=== PATIENT | female | born 1995 | race American Indian/Alaskan Native ===

== ENCOUNTER 2020-01-04 07:36 | Emergency (ER) | payer BC, OTHER ==
[2020-01-04 08:50] LABS: Bacteria,Urine 1+ /HPF (Negative); Bilirubin,Urine NEG (Negative); Blood,Urine LG (Negative); Color,Urine Straw (Yellow); Protein,Urine <15 mg/dL mg/dL (Negative); Urobilinogen,Urine < 2.0 mg/dL (<2.0)
--- NOTE | 2020-01-04 09:16 | Emergency Department Report ---
ED HPI - General Chief complaint: Vaginal Bleeding Stated complaint: poss mischariage Time Seen by Provider: 01/04/20 08:08 Source: patient Mode of arrival: Ambulatory Limitations: No Limitations - History of Present Illness Initial comments: Patient is a 24-year-old female presents emergency room with complaints of vaginal bleeding that began this morning. She states that it was bright red blood and she saw a small amount of clots. She states that the bleeding is since improved. She states that she has some mild lower abdominal pressure but denies any pain or cramping. She denies any vomiting, diarrhea, fever, dysuria, abnormal vaginal discharge. She states that she is currently 19 weeks . She states her OB group is [facility]. Patient states her last menstrual cycle was August 18. She states this is her first . No past medical history. No allergies to medications. - Related Data Previous Rx's Medication Instructions Recorded Last Taken Type Acetaminophen/Codeine [Tylenol #3] 1 tab PO Q6H PRN #15 tab 04/10/15 Unknown Rx Ibuprofen [Motrin 800 MG tab] 800 mg PO Q8HR PRN #30 tablet 04/10/15 Unknown Rx Allergies Allergy/AdvReac Type Severity Reaction Status Date / Time No Known Allergies Allergy Unverified 04/10/15 07:31 ED Review of Systems ROS: Stated complaint: poss mischariage Other details as noted in HPI Comment: All other systems reviewed and negative ED Past Medical Hx - Past Medical History Previous Medical History?: No - Surgical History Past Surgical History?: No - Social History Smoking Status: Never Smoker Substance Use Type: None - Medications Home Medications: Home Medications Medication Instructions Recorded Confirmed Last Taken Type Acetaminophen/Codeine [Tylenol #3] 1 tab PO Q6H PRN #15 tab 04/10/15 Unknown Rx Ibuprofen [Motrin 800 MG tab] 800 mg PO Q8HR PRN #30 tablet 04/10/15 Unknown Rx ED Physical Exam - General Limitations: No Limitations General appearance: alert, in no apparent distress - Head Head exam: Present: atraumatic, normocephalic - Eye Eye exam: Present: normal appearance - ENT ENT exam: Present: mucous membranes moist - Respiratory Respiratory exam: Present: normal lung sounds bilaterally. Absent: respiratory distress, wheezes, rales, rhonchi, stridor, chest wall tenderness, accessory muscle use, decreased breath sounds, prolonged expiratory - Cardiovascular Cardiovascular Exam: Present: regular rate, normal rhythm, normal heart sounds. Absent: systolic murmur, diastolic murmur, rubs, gallop - GI/Abdominal GI/Abdominal exam: Present: soft, normal bowel sounds. Absent: distended, tenderness, guarding, rebound, rigid - Neurological Exam Neurological exam: Present: alert, oriented X3 - Psychiatric Psychiatric exam: Present: normal affect, normal mood - Skin Skin exam: Present: warm, dry, intact ED Course Vital Signs 01/04/20 01/04/20 07:59 08:16 Temperature 98.2 F Pulse Rate 83 Respiratory 16 18 Rate Blood Pressure 129/80 [Right] O2 Sat by Pulse 99 99 Oximetry ED Medical Decision Making - Lab Data Result diagrams: 01/04/20 09:18 01/04/20 09:18 Lab Results 01/04/20 01/04/20 01/04/20 Range/Units 09:18 09:18 09:18 WBC 9.7 (4.5-11.0) K/mm3 RBC 3.68 (3.65-5.03) M/mm3 Hgb 11.7 (10.1-14.3) gm/dl Hct 33.3 (30.3-42.9) % MCV 91 (79-97) fl MCH 32 (28-32) pg MCHC 35 H (30-34) % RDW 13.8 (13.2-15.2) % Plt Count 358 (140-440) K/mm3 Lymph % (Auto) 11.3 L (13.4-35.0) % [place] % (Auto) 6.1 (0.0-7.3) % Eos % (Auto) 0.9 (0.0-4.3) % Baso % (Auto) 0.3 (0.0-1.8) % Lymph # 1.1 L (1.2-5.4) K/mm3 [place] # 0.6 (0.0-0.8) K/mm3 Eos # 0.1 (0.0-0.4) K/mm3 Baso # 0.0 (0.0-0.1) K/mm3 Seg Neutrophils % 81.4 H (40.0-70.0) % Seg Neutrophils # 7.9 H (1.8-7.7) K/mm3 Sodium 139 (137-145) mmol/L Potassium 4.5 (3.6-5.0) mmol/L Chloride 103.7 (98-107) mmol/L Carbon Dioxide 22 (22-30) mmol/L Anion Gap 18 mmol/L BUN 7 (7-17) mg/dL Creatinine 0.6 (0.6-1.2) mg/dL Estimated GFR > 60 ml/min BUN/Creatinine Ratio 12 % Glucose 89 (65-100) mg/dL Calcium 9.5 (8.4-10.2) mg/dL HCG, Quant 9837 H (0-4) mIU/mL Urine Color (Yellow) Urine Turbidity (Clear) Urine pH (5.0-7.0) Ur Specific [place] (1.003-1.030) Urine Protein (Negative) mg/dL Urine Glucose (UA) (Negative) mg/dL Urine Ketones (Negative) mg/dL Urine Blood (Negative) Urine Nitrite (Negative) Urine Bilirubin (Negative) Urine Urobilinogen (<2.0) mg/dL Ur Leukocyte Esterase (Negative) Urine WBC (Auto) (0.0-6.0) /HPF Urine RBC (Auto) (0.0-6.0) /HPF U Epithel Cells (Auto) (0-13.0) /HPF Urine Bacteria (Auto) (Negative) /HPF Blood Type 01/04/20 01/04/20 Range/Units 09:18 Unknown WBC (4.5-11.0) K/mm3 RBC (3.65-5.03) M/mm3 Hgb (10.1-14.3) gm/dl Hct (30.3-42.9) % MCV (79-97) fl MCH (28-32) pg MCHC (30-34) % RDW (13.2-15.2) % Plt Count (140-440) K/mm3 Lymph % (Auto) (13.4-35.0) % [place] % (Auto) (0.0-7.3) % Eos % (Auto) (0.0-4.3) % Baso % (Auto) (0.0-1.8) % Lymph # (1.2-5.4) K/mm3 [place] # (0.0-0.8) K/mm3 Eos # (0.0-0.4) K/mm3 Baso # (0.0-0.1) K/mm3 Seg Neutrophils % (40.0-70.0) % Seg Neutrophils # (1.8-7.7) K/mm3 Sodium (137-145) mmol/L Potassium (3.6-5.0) mmol/L Chloride (98-107) mmol/L Carbon Dioxide (22-30) mmol/L Anion Gap mmol/L BUN (7-17) mg/dL Creatinine (0.6-1.2) mg/dL Estimated GFR ml/min BUN/Creatinine Ratio % Glucose (65-100) mg/dL Calcium (8.4-10.2) mg/dL HCG, Quant (0-4) mIU/mL Urine Color Straw (Yellow) Urine Turbidity Clear (Clear) Urine pH 7.0 (5.0-7.0) Ur Specific [place] 1.006 (1.003-1.030) Urine Protein <15 mg/dl (Negative) mg/dL Urine Glucose (UA) Neg (Negative) mg/dL Urine Ketones Neg (Negative) mg/dL Urine Blood Lg (Negative) Urine Nitrite Neg (Negative) Urine Bilirubin Neg (Negative) Urine Urobilinogen < 2.0 (<2.0) mg/dL Ur Leukocyte Esterase Neg (Negative) Urine WBC (Auto) 1.0 (0.0-6.0) /HPF Urine RBC (Auto) 15.0 (0.0-6.0) /HPF U Epithel Cells (Auto) 2.0 (0-13.0) /HPF Urine Bacteria (Auto) 1+ (Negative) /HPF Blood Type O NEGATIVE - Radiology Data Radiology results: report reviewed OB ULTRASOUND >= 14 WEEKS FETUS INDICATION: , bleeding, cramping COMPARISON: None FINDINGS: A single gestation intrauterine is present with breech presentation. The placenta is posterior, grade 0 and free of the cervical os. heart tones measure 145 bpm. The cervix measures 4.3 cm in length. Subjective amniotic fluid volume appears within normal limits. NICHOLAS was not measured. anatomical survey was not performed. Biparietal diameter is 5.0 cm which equals 21 weeks 1 day. Head circumference is 18.6 cm which equals 20 weeks 6 days. Abdominal circumference is 15.0 cm which equals 20 weeks 1 day. Femur length is 3.3 cm which equals 20 weeks 1 day. Overall estimated sonographic age is 20 weeks 4 days. Estimated weight 345 g +/- 50 1 g. 79th percentile. Cephalic index: 81.7.. IMPRESSION: Viable single intrauterine as described. Signer Name: Eddie tSevenson Jr, MD Signed: 01/04/2020 9:11 AM Workstation Name: [id number] Transcribed By: TTR Dictated By: EDDIE STEVENSON JR, MD Electronically Authenticated By: EDDIE STEVENSON JR, MD Signed Date/Time: 01/04/20910 DD/ 7 TD/TT: - Medical Decision Making Patient is a 24-year-old female presents emergency room with complaints of vaginal bleeding that began this morning. She states that it was bright red blood and she saw a small amount of clots. She states that the bleeding is since improved. She states that she has some mild lower abdominal pressure but denies any pain or cramping. She denies any vomiting, diarrhea, fever, dysuria, abnormal vaginal discharge. She states that she is currently 19 weeks . She states her OB group is [facility]. Patient states her last menstrual cycle was August 18. She states this is her first . No past medical history. No allergies to medications. Vitals are normal. No abdominal tenderness on exam. H&H is normal. BMP is normal. hCG quant is 9837. UA is within normal limits. Patient is Rh-. OB US: Viable single intrauterine as described. Patient given RhoGam while in the emergency department. Discussed all results with patient and answered questions. Advised patient that she needed close OB follow-up within the next 2 days, she verbalized understanding. Advised patient please increase your water intake. Please continue taking her vitamin. May take Tylenol if begin experiencing abdominal cramping. Follow-up with your OB doctor in the next 2 days. It is very important that you have close OB follow-up. Return to emergency room immediately for any new or worsening symptoms. Critical care attestation.: If time is entered above; I have spent that time in minutes in the direct care of this critically ill patient, excluding procedure time. ED Disposition Clinical Impression: Vaginal bleeding, Abdominal pressure, Need for rhogam due to Rh negative mother Qualifiers: Weeks of gestation: 20 weeks Qualified Code(s): Z3A.20 - 20 weeks gestation of Disposition: DC-01 TO HOME OR SELFCARE Is pt being admited?: No Does the pt Need Aspirin: No Condition: Stable Instructions: Threatened Miscarriage (ED), Rho(D) Immune Globulin (Injection) Additional Instructions: please practice pelvic rest. please increase your water intake. Please continue taking her vitamin. May take Tylenol if begin experiencing abdominal cramping. Follow-up with your OB doctor in the next 2 days. It is very important that you have close OB follow-up. Return to emergency room immediately for any new or worsening symptoms. Referrals: PRIMARY CARE, [Primary Care Provider] - 2-3 Days [facility] [Provider Group] - 2-3 Days Time of Disposition: 12:00 Print Language: OCCITAN
[2020-01-04 09:58] LABS: Basophils % (Auto) 0.3 % (0.0-1.8); Eosinophils # (Auto) 0.1 K/mm3 (0.0-0.4); Eosinophils % (Auto) 0.9 % (0.0-4.3); Hematocrit 33.3 % (30.3-42.9); Hemoglobin 11.7 gm/dl (10.1-14.3); Lymphocytes # (Auto) 1.1 K/mm3 (1.2-5.4); Lymphocytes % (Auto) 11.3 % (13.4-35.0); Mean Corpuscular HGB Conc 35 % (30-34); Mean Corpuscular Volume 91 fl (79-97); Monocytes # (Auto) 0.6 K/mm3 (0.0-0.8); Monocytes % (Auto) 6.1 % (0.0-7.3); Platelet Count 358 K/mm3 (140-440); Red Blood Count 3.68 M/mm3 (3.65-5.03); Red Cell Distribution Width 13.8 % (13.2-15.2)
[2020-01-04 11:06] LABS: Blood Urea Nitrogen 7 mg/dL (7-17); Calcium 9.5 mg/dL (8.4-10.2); Hemolysis Index 1
[2020-01-04 11:07] LABS: BUN/Creatinine Ratio 12
[2020-01-04 12:45] VITALS: BP 128/70
== END 2020-01-04 12:45 | disposition home or self-care (01) ==
LOC: ED 07:36
DX: O20.8 Other hemorrhage in early pregnancy (principal); O26.892 Other specified pregnancy related conditions, second trimester; Z79.899 Other long term (current) drug therapy; Z29.13 Encounter for prophylactic Rho(D) immune globulin; Z3A.20 20 weeks gestation of pregnancy
CPT/HCPCS: 36415; 76805; 80048; 81001; 84702; 85025; 86850; 86900; 86901; 99284; J2790

== ENCOUNTER 2020-03-02 10:56 | Outpatient (CLI) | payer BC | END 2020-03-02 14:40 | disposition home or self-care (01) | LOC: LAB 10:56 → TRG 14:05 → LAB 14:40 | PROVIDERS: ATTEND Obstetrics & Gynecology | DX: O46.93 Antepartum hemorrhage, unspecified, third trimester (principal); Z3A.28 28 weeks gestation of pregnancy | CPT/HCPCS: 86850; 86900; 86901; 96372; J2790 ==